=== PATIENT | female | born 1950 | race Hispanic/Latino ===

== ENCOUNTER 2022-11-14 15:30 | Emergency (ER) | payer OTHER ==
[~2022-11-14] VITALS: Ht 157.5 cm; Wt 59.9 kg
[2022-11-14 16:52] LABS: BASOPHILS % (AUTO) 0.6 % (0.0-5.0); EOSINOPHILS % (AUTO) 2.6 % (0.0-8.0); HEMATOCRIT 36.3 % (36-48); LYMPHOCYTES % (AUTO) 31.6 % (21.0-51.0); MEAN CORPUSCULAR HEMOGLOBIN 28.4 pg (27.0-33.0); MEAN CORPUSCULAR HGB CONC 32.5 g/dL (32.0-36.0); MEAN CORPUSCULAR VOLUME 87.3 fL (79-99); MONOCYTES % (AUTO) 4.5 % (3.0-13.0); NEUTROPHILS % (AUTO) 60.5 % (40.0-77.0); PLATELET COUNT (AUTO) 212 K/uL (130-400); RED BLOOD CELL COUNT(AUTO) 4.16 MIL/uL (4.00-5.50); WHITE BLOOD COUNT (AUTO) 8.9 K/uL (4.8-10.8)
[2022-11-14 17:02] LABS: CREATININE 1.1 mg/dL (0.5-1.5); POTASSIUM 4.1 mmol/L (3.5-5.1)
[2022-11-14 17:07] LABS: ALBUMIN 3.6 g/dL (3.5-5.0)
[2022-11-14 18:58] LABS: APPEARANCE,URINE CLEAR (CLEAR); BILIRUBIN,URINE NEGATIVE (NEGATIVE); COLOR,URINE LIGHT-YELLOW (YELLOW); GLUCOSE, URINE (UA) 500 mg/dL (NEGATIVE); KETONES,URINE NEGATIVE (NEGATIVE); LEUKOCYTE ESTERASE ,URINE 250 Leu/uL (NEGATIVE); NITRATE,URINE NEGATIVE (NEGATIVE); OCCULT BLOOD,URINE NEGATIVE (NEGATIVE); PH,URINE 5.5 (5.0-8.0); PROTEIN,URINE NEGATIVE (NEGATIVE); UROBILINOGEN,URINE 0.2 mg/dL (0.2-1.0)
[2022-11-14 19:05] LABS: BACTERIA,URINE RARE /HPF (None Seen); MUCUS,URINE RARE LPF (None Seen); SQUAMOUS EPITHELIAL CELL,UR FEW /HPF (0-2); YEAST,URINE BUDDING FEW /HPF (None Seen)
[2022-11-14] MEDS ORDERED: CEPH500B PO (19:49)
[2022-11-14] MEDS ORDERED: DICL20GE TP (19:49)
[2022-11-14] MEDS ORDERED: KETOROLAC 15MG/ML VIAL (15MG/ML) IV ONE (20:00)
[2022-11-14] MEDS ORDERED: 0.9%NACL 1000ML 1,000 ML IV ONE (20:00)
[2022-11-14 20:23] VITALS: BP 133/62
[2022-11-14] MEDS ORDERED: KETOROLAC 15MG/ML VIAL (15MG/ML) ONE (20:27)
== END 2022-11-14 20:26 | disposition home or self-care (01) ==
LOC: EDH 15:30
DX: N39.0 Urinary tract infection, site not specified (principal); E86.0 Dehydration; M19.90 Unspecified osteoarthritis, unspecified site; I10 Essential (primary) hypertension; Z88.2 Allergy status to sulfonamides; Z79.899 Other long term (current) drug therapy
CPT/HCPCS: 99284; 96374; 96361; 84484; 80053; 85025; 87088; 81001; 36415; 93005; J7030; J1885